=== PATIENT | male | born 1955 | race Caucasian/White ===

== ENCOUNTER 2016-10-06 18:20 | Observation (INO) | payer OTHER ==
[~2016-10-06] VITALS: Ht 188 cm; Wt 122.5 kg
[~2016-10-06 18:20] MED LIST: ASPIR 8181 MG PO; BABY ASPIRIN CH81 MG PO; FLONASE120 SPRAY/ NASB; FOLIC ACID 1 MG PO; Theragran Vitamins PO; VITAMIN B1100 MG PO
[2016-10-06 18:45] LABS: ABSOLUTE BASOPHIL COUNT 0 /CUMM (0.0-0.2); ABSOLUTE EOSINOPHIL COUNT 0 /CUMM (0.0-0.7); ABSOLUTE LYMPH COUNT 1.9 /CUMM (1.2-3.4); ABSOLUTE MONOCYTE COUNT 0.5 /CUMM (0.10-0.60); BASOPHIL % 0.1 % (0.0-2.0); EOSINOPHIL % 0.1 % (0-5); GRANULOCYTE % 83.2 % (42.2-75.2); HEMATOCRIT 46.4 % (42-52); MEAN CORPUSCULAR HGB 32.3 PG (27.0-31.0); MEAN CORPUSCULAR HGB CONC 33.8 G/DL (33.0-37.0); MEAN CORPUSCULAR VOLUME 95.7 FL (80.0-94.0); PLATELET COUNT 184 /CUMM (130-400); RBC DISTRIBUTION WIDTH 13.2 % (11.5-14.5); RED BLOOD CELL CT 4.85 /CUMM (4.70-6.10); WHITE BLOOD CELL COUNT 14.4 /CUMM (4.8-10.8)
--- NOTE | 2016-10-06 18:49 | ED GENERAL ADULT ---
See Addendum History of Present Illness General Chief Complaint: ETOH/Drug Related Complaint Stated Complaint: NOT FEELING WELL, ETOH DETOX Source: patient Exam Limitations: clinical condition Vital Signs & Intake/Output Vital Signs & Intake/Output Vital Signs Date Time Temp Pulse Resp B/P B/P Pulse O2 O2 Flow FiO2 Mean Ox Delivery Rate 10/07 0011 108 20 146/65 10/07 0011 108 20 146/65 95 Room Air 10/06 2208 99.1 107 20 161/77 10/06 2209 99.1 107 20 16177 94 Room Air 10/06 2008 97.8 102 20 158/82 10/06 2008 97.8 102 20 158/82 98 Room Air 10/06 1828 97.4 101 18 154/89 100 Room Air ED Intake and Output 10/07 0000 10/06 1200 Intake Total 1000 Output Total Balance 1000 Intake, IV 1000 Patient 227 lb Weight Weight Reported by Patient Measurement Method Allergies Coded Allergies: NO KNOWN ALLERGIES (01/05/15) Triage Note: PT TO ED FOR ETOH DETOX, APPEARS TREMULOUS AND ANXIOUS, PT UNABLE TO ANSWER QUESTIONS APPROPRIATELY BUT STATING THAT HE WAS "ONLY DRINKING FOR THREE DAYS AND STOPPED THREE DAYS AGO". +FLIGHT OF IDEAS, DIFFICULTY ANSWERING DIRECT QUESTIONS WITH APPRROPRIATE ANSWERS. Triage Nurses Notes Reviewed? yes Onset: Abrupt Duration: hour(s): Timing: recent history HPI: 10/06/16 7:26 PM 61-year-old male presents to the emergency department for alcohol withdrawal and not feeling well. According to the patient he drinks every day. He says he's been not feeling well and is been unable to drink for the past 48 hours. The onset of the symptoms was abrupt, the duration has been about the last 72 hours, the severity is significant as his symptoms required him to come to the emergency department for care He is tremulous in the ED (FANTA WILSON DO) Reconcile Medications Aspirin (Ecotrin*) 81 MG TABLET.DR 1 TAB PO DAILY HEART/BLOOD (Reported) Lorazepam 0.5 MG TABLET 1 TAB PO PRN ANXIETY (Reported) (PAO GILLESPIE,PROSPER Jimenez) Past History Travel History Traveled to [place] past 21 day No Medical History Any Pertinent Medical History? see below for history Neurological: NONE EENT: NONE Cardiovascular: hyperlipidemia Respiratory: COPD Gastrointestinal: NONE Hepatic: NONE Renal: NONE Musculoskeletal: degen joint disease Psychiatric: alcohol dependence Endocrine: NONE Blood Disorders: NONE Cancer(s): NONE INSURANCE BROKER/Reproductive: NONE Other Medical Hx: alcohol abuse History of VRE: No Pneumonia Vaccine: 03/25/15 Influenza Vaccine: 02/07/13 Surgical History Surgical History: hernia repair-umbilical Psychosocial History What is your primary language [place] Tobacco Use: Current Daily Use Daily Tobacco Use Amount/Type: => 5 Cigarettes daily ETOH Use: alcoholic Illicit Drug Use: denies illicit drug use Family History Hx Contributory? No (FANTA WILSON DO) Review of Systems Review of Systems Constitutional: Denies: fever. EENTM: Reports: blurred vision. Respiratory: Denies: short of breath. Cardiovascular: Denies: chest pain. GI: Reports: abdominal pain, nausea. Genitourinary: Reports: no symptoms. Musculoskeletal: Reports: no symptoms. Skin: Reports: no symptoms. Neurological/Psychological: Reports: anxiety. Hematologic/Endocrine: Denies: bruising, bleeding. (FANTA WILSON DO) Physical Exam Physical Exam General Appearance: alert, awake, anxious, moderate distress Head: atraumatic, normal appearance Eyes: Bilateral: normal appearance, PERRL, EOMI. Ears, Nose, Throat: normal ENT inspection Neck: normal inspection, supple, full range of motion Respiratory: normal breath sounds, chest non-tender, no respiratory distress Cardiovascular: tachycarida Peripheral Pulses: 4+ radial (R), 4+ radial (L) Gastrointestinal: soft, non-tender Back: normal range of motion Extremities: normal range of motion Neurologic/Psych: no motor/sensory deficits, awake, alert, oriented x 3 Skin: intact, normal color, warm/dry Core Measures ACS in differential dx? No CVA/TIA Diagnosis: No Severe Sepsis Present: No Septic Shock Present: No (FANTA WILSON DO) Progress Differential Diagnoses I considered the following diagnoses in my evaluation of the patient: ["ETOH Withdrawal, pancreatitis, alcoholic gastritis, alcoholic hepatitis,] Patient with CIWA score greater than 20. Case management consult has been requested for approval for alcohol detox admission. The patient was started on the alcohol detox protocol. He will be signed out to Dr. Tabor at 8 PM Plan of Care: Orders Procedure Date/time Status Pathway - chart 10/06 1944 Active CIWA 10/06 1944 Active CASE MANAGEMENT CONSULT 10/06 1944 Active EKG 10/07 1943 Active Add-on Test (ER Only) 10/06 190 Active CIWA 10/06 190 Active LIPASE 10/07 1835 Complete AMYLASE 10/07 1835 Complete URINE DRUG SCREEN FOR ER ONLY 10/06 183 Complete ETHANOL 10/06 183 Complete COMPREHENSIVE METABOLIC PANEL 10/07 1831 Complete CBC WITHOUT DIFFERENTIAL 10/07 1831 Complete Current Medications Sig/Verna Start time Last Medication Dose Stop Time Status Admin Lorazepam 0.5 MG Q6 10/10 0600 AC (Ativan) 10/11 0000 Lorazepam 0.5 MG ONCE ONE 10/09 1800 AC (Ativan) 10/09 1801 Lorazepam 1 MG Q6H 10/09 0000 AC (Ativan) 10/09 1201 Lorazepam 1.5 MG Q12H 10/08 0600 AC (Ativan) 10/08 1801 Lorazepam 1 MG Q12H 10/08 0000 AC (Ativan) 10/08 1201 Lorazepam 2 MG ONCE ONE 10/07 1800 AC (Ativan) 10/07 1801 Lorazepam 1.5 MG Q6H 10/07 0000 AC (Ativan) 10/07 1201 Lorazepam 2 MG Q6 10/06 194 AC 10/07 (Ativan) 0017 Lorazepam 2 MG Q2P PRN 10/06 1944 AC (Ativan) Lorazepam 1 MG Q2P PRN 10/06 1944 AC (Ativan) Laboratory Tests 10/07/164: Urine Opiates Screen < 100.00, Methadone Screen < 40, Barbiturate Screen < 60, Ur Phencyclidine Scrn < 6.00, Amphetamines Screen 141, U Benzodiazepines Scrn < 85, Urine Cocaine Screen < 50, Urine Cannabis Screen < 5.00 10/06/161835: Anion Gap 21 H, Estimated GFR > 60, BUN/Creatinine Ratio 25.6 H, Glucose 88, Calcium 8.5, Total Bilirubin 1.4 H, AST 101 H, ALT 114 H, Alkaline Phosphatase 62, Total Protein 7.3, Albumin 4.5, Globulin 2.8, Albumin/Globulin Ratio 1.6, Amylase 60, Lipase 166, CBC w Diff NO MAN DIFF REQ, RBC 4.85, MCV 95.7 H, MCH 32.3 H, RDW 13.2, MPV 8.0, Gran % 83.2 H, Lymphocytes % 13.4 L, Monocytes % 3.2, Eosinophils % 0.1, Basophils % 0.1, Absolute Granulocytes 12.0 H, Absolute Lymphocytes 1.9, Absolute Monocytes 0.5, Absolute Eosinophils 0, Absolute Basophils 0, PUBS MCHC 33.8, Serum Alcohol 96.0 Initial ED EKG: none (FANTA WILSON DO) Hand-Off Endorsed To: FANTA WILSON DO Endorsed Time: 0700 Pending: consult (CASE MANAGEMENT) (PAO GILLESPIE,PROSPER Jimenez) Departure Departure Disposition: STILL A PATIENT Condition: Stable Clinical Impression Primary Impression: Alcohol dependence with withdrawal Referrals: SHERRY GILLESPIE,LOUIE Issa Departure Forms: Customer Survey General Discharge Information Alcohol Withdrawl Admission ED Alcohol Detox Admission d/t: CIWA Score >15 (FANTA WILSON DO) Critical Care Note Critical Care Note Critical Care Time: non-applicable (FANTA WILSON DO)
[2016-10-06 20:09] VITALS: BP 158/82
[2016-10-06] MEDS ORDERED: LORAZEPAM0.5 M1 PO (21:19)
[2016-10-06] MEDS ORDERED: ASPIRIN EC81 M1 PO (21:20)
--- NOTE | 2016-10-06 21:28 | CT SCAN REPORT ---
EXAMINATION: CT ABDOMEN AND PELVIS WITHOUT CONTRAST CLINICAL INFORMATION: Abdominal pain. Nausea. COMPARISON: CT abdomen pelvis 09/22/2009 TECHNIQUE: Multidetector volumetric imaging was performed from the superior aspect of the liver through the pubic symphysis. Sagittal and coronal reformatted images were obtained on the technologist's workstation. No oral or intravenous contrast. DLP: 484.51 mGy-cm FINDINGS: LUNG BASES: The visualized lung bases are unremarkable. LIVER, GALLBLADDER, AND BILIARY TREE: Diffuse fatty infiltration of liver with low attenuation of the parenchyma. No focal liver lesion. No intrapelvic bile duct dilatation. Right lobe liver measures 17.1 cm superior inferior. The gallbladder is unremarkable with no evidence of radiopaque gallstones, gallbladder wall thickening, or obvious pericholecystic inflammatory changes. PANCREAS: Unremarkable. SPLEEN: Unremarkable. ADRENAL GLANDS: Unremarkable. KIDNEYS AND URETERS: The kidneys are normal in size, shape, and attenuation. No hydronephrosis, hydroureter, or calculi seen. No perinephric stranding. BLADDER: Unremarkable. GASTROINTESTINAL TRACT: There is mild diverticulosis of sigmoid colon. No diverticulitis. No acute change of the bowel. No bowel obstruction. No bowel wall thickening or edema. Moderate volume of stool scattered throughout the colon. ABDOMINAL WALL: No significant hernia is appreciated. LYMPH NODES: Normal. VASCULAR: Atherosclerotic vascular wall calcifications of aorta and iliac vessels without aneurysm. PELVIC VISCERA: Prostate measures 4.6 cm transverse by small calcifications within the prostate. OSSEOUS STRUCTURES: Vacuum disc phenomenon L5-S1. Endplate spurs of lower thoracic vertebrae and facet joint arthrosis of thoracic and lumbar vertebral bodies. IMPRESSION: No acute abnormality CT scan abdomen pelvis. Diffuse fatty change of liver.
[2016-10-06 22:09] VITALS: BP 161/77
[2016-10-07] VITALS (12 sets, daily range): BP systolic 124–168; BP diastolic 58–82
[2016-10-07] MEDS ORDERED: ATIVAN1 M1 PO (15:35)
== END 2016-10-07 15:37 ==
LOC: ERH 18:20 → ERHI 10-07 09:31 → CMPBEDREQ 10-07 23:09
PROVIDERS: ADMIT Emergency Medicine
DX: F10.239 Alcohol dependence with withdrawal, unspecified (principal); F17.200 Nicotine dependence, unspecified, uncomplicated; E78.5 Hyperlipidemia, unspecified; J44.9 Chronic obstructive pulmonary disease, unspecified; M19.90 Unspecified osteoarthritis, unspecified site
CPT/HCPCS: 74176; 80307; 93005; 93010; 96361; 96374; 96375; 96376; G0378; G0480; J2405